=== PATIENT | male | born 1965 | race Caucasian/White ===

== ENCOUNTER 2016-12-24 21:28 | Inpatient (IN) | payer SELFPAY ==
--- NOTE | ~2016-12-24 | HP ---
History And Physical [place] [id number] [facility] [place]. [address] NAME: WING DUFFY : 65 STATUS : ADM IN [facility]#: [id number] AGE: 51 ADM/REG DATE : 12/25/16 MR#: [id number] REPORT SERV DATE: 12/25/16 DICTATED BY: TIAGO SIMS DATE: 12/25/16 REPORT STATUS : Draft TRANSCRIBED BY: MODL DATE: 12/25/16 DATE OF ADMISSION: 12/25/2016 CHIEF COMPLAINT: Severe abdominal pain and nausea. HISTORY OF PRESENT ILLNESS: This is a 51-year-old male, who presents to the emergency room at [facility] with the above-mentioned complaint. History is obtained from the patient, his who is at bedside, and reviewing data available on the [employer] system. According to Mr. Duffy, he started having severe abdominal pain in the lower abdomen around 7 p.m. last night. The pain was so severe that he almost doubled over. He says the pain came in waves and was very severe cramping in nature. He has not passed any blood or any stool since. He did have some nausea, but without any vomiting. When the pain continued and became very unbearable, he decided to come to the emergency room to be evaluated. In the emergency room, initial workup including a CT scan of his abdomen and pelvis showed mild thickening of the munoz of the colon, consistent with acute colitis. He also had leukocytosis in the CBC and acute kidney injury. Hospitalist Service is asked to admit him for further evaluation and management. At the time of my evaluation, he denied any chest pain or palpitations. He had no orthopnea. He continued to be in severe abdominal pain. He did not have any cough, hemoptysis, night sweats, or weight loss. He has not had any recent falls or loss of consciousness. He did have chills today prior to his arrival to the emergency room. He has not had any history of fevers. No history of vomiting, diarrhea. No hematemesis, hematochezia, or hematuria. No other history of recent travel or exposures other than those mentioned above. PAST MEDICAL HISTORY: Significant for history of hypothyroidism, history of congestive heart failure and cardiomyopathy, the details of which we do not have as he goes to [place] in [place]. He also has a history of gastroesophageal reflux disease. SOCIAL HISTORY: He has about 20 to [id number] history of smoking, continues to do so. Denies alcohol use or recreational drug use. 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 FAMILY HISTORY: Noncontributory. MEDICATIONS: At home were reviewed by me in the chart today and reordered by me. REVIEW OF SYSTEMS: As in history of present illness. All other systems were reviewed in detail and are quite unremarkable. PHYSICAL EXAMINATION: History And Physical [address] [address] NAME: WING DUFFY : 65 STATUS : ADM IN [facility]#: [id number] AGE: 51 ADM/REG DATE : 12/25/16 MR#: [id number] REPORT SERV DATE: 12/25/16 DICTATED BY: TIAGO SIMS DATE: 12/25/16 REPORT STATUS : Draft TRANSCRIBED BY: LALO DATE: 12/25/16 GENERAL: This is a pleasant 51-year old, not in any acute distress. He is alert, awake, oriented to time, place, and person. HEENT: Head is atraumatic, normocephalic. His pupils are equal, reacting to light and accommodating. External ocular muscles are intact. Membranes are moist and pink. Sclerae are nonicteric. NECK: Supple with no jugular venous distention, lymphadenopathy, or thyromegaly. LUNGS: Clear to auscultation with no wheezes, rubs, or crackles. HEART: Heart sounds were regular with no murmurs, rubs, or gallops. ABDOMEN: Soft, tender to palpation especially in the lower abdomen. There is no rebound or guarding. Bowel sounds are present. There was no obvious organomegaly. EXTREMITIES: Showed no cyanosis, clubbing, or edema. NEUROLOGIC: Grossly intact. No focal sensory or motor deficits. Higher functions appeared intact. Gait was not examined today. VITAL SIGNS: His temperature was 97.3, pulse 72, respirations 17 a minute, blood pressure was 111/74, oxygen saturations were 95% breathing 2 L of oxygen via nasal cannula. LABORATORY DATA: Reviewed on the [employer] system showed a sodium of 140, potassium 4.2, chloride 107, CO2 of 27, BUN was 25 with a creatinine of 1.42. We do not have any prior values here. Blood glucose was 125. His lipase was 121. Lactate was 0.9. [place] [address], normal hemoglobin, hematocrit, and platelet count. Urinalysis was grossly unremarkable. Films of the CT scan of his abdomen and pelvis were reviewed by me on the PACS today and interpreted by me. Official radiology comments were also noted. CT of the abdomen and pelvis showed mild thickening of the munoz of the colon consistent with acute colitis. Please see report for details. A 12-lead EKG done in the emergency room was reviewed and interpreted by me. There is normal sinus rhythm with a rate of [address]-T changes. IMPRESSION: 1. Severe abdominal pain. 2. Acute colitis. 3. Leukocytosis. 4. Acute kidney injury. 5. Hypothyroidism. 6. History of congestive heart failure, cardiomyopathy followed at [facility] in [place]. 7. Gastroesophageal reflux disease. PLAN: We will admit Mr. Duffy to the med/surg telemetry floor. We will start him on IV fluids for volume replacement, keep him n.p.o. for now for bowel rest. We will establish pain control with Dilaudid on an as-needed basis. We will also obtain cultures, start him on empiric IV antibiotics at this time and go ahead and consult Gastroenterology Service to see him in the morning. He says he has never seen a driver here. We will also get chemistry, electrolytes in the morning, and replace as needed. We will check his thyroid function, continue replacement therapy at this time. We will also place him on History And Physical [address] [address] NAME: WING DUFFY : 65 STATUS : ADM IN [facility]#: [id number] AGE: 51 ADM/REG DATE : 12/25/16 MR#: [id number] REPORT SERV DATE: 12/25/16 DICTATED BY: TIAGO SIMS DATE: 12/25/16 REPORT STATUS : Draft TRANSCRIBED BY: LALO DATE: 12/25/16 unfractionated heparin for DVT prophylaxis as his stool Hemoccult which was done here was negative. I have discussed the above plans with the patient, and his questions were answered. He and his ex- are in agreement with the above plan. Further recommendations will follow after Gastroenterology has had a chance to see him. Hospitalist Service will be following him during his stay here. /LALO Tiago Sims M.D. / [id number] CC: Cory Blair MD
--- NOTE | ~2016-12-24 | CN ---
Consultation Report [facility] [address] [place]. [address] NAME: WING DUFFY : 65 STATUS : ADM IN [facility]#: [id number] AGE: 51 ADM/REG DATE : 12/25/16 MR#: [id number] REPORT SERV DATE: 12/25/16 DICTATED BY: FABIANA MILES DATE: 12/25/16 REPORT STATUS : Draft TRANSCRIBED BY: MODL DATE: 12/25/16 CONSULTATION DATE OF CONSULTATION: 12/25/2016 The patient has no primary care provider. REASON FOR EVALUATION: Abdominal pain and diarrhea. HISTORY OF PRESENT ILLNESS: Mr. Duffy is a 51-year-old, male who has recently migrated to the [facility] from [facility]. He was in his usual state of health until yesterday when he developed nausea, an urge to vomit, crampy abdominal pain, and diarrhea. He was admitted as the crampy pain was severe and spastic in nature. His stool has been watery. He reports approximately 5 bowel movements through the night. The stool is brown. He has had no bloody diarrhea. The patient denies previous similar symptoms. There has been no ill contacts, travel, or recent antibiotics. He does not drink well water or city water. His nausea has improved, and he has had no vomiting. He has not established with any physicians here in the [facility]. PAST MEDICAL HISTORY: 1. 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 Evaluated at [facility] for possible transplantation. The patient reports his ejection fraction has improved over the last two years to approximately 24%. 2. Hypothyroidism. 3. Gastroesophageal reflux. 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 He has ongoing tobacco use, with a 30- pack years smoking history. FAMILY HISTORY: Noncontributory. MEDICATIONS: On admission include Aldactone, digoxin, Synthroid, and Coreg. ALLERGIES: NONE KNOWN. PHYSICAL EXAMINATION: GENERAL: Reveals a man who appears older than his stated age. VITAL SIGNS: Blood pressure 128/70, temperature 97.8, heart rate 89. SKIN: Numerous tattoos. HEENT: No icterus. Oropharynx is dry. NECK: Supple. No jugular venous distention. CHEST: Clear to auscultation. CARDIAC: Regular rate and rhythm without gallop or murmur. Consultation Report [place] [id number] [place]. [address] NAME: WING DUFFY : 65 STATUS : ADM IN PAT#: [id number] AGE: 51 ADM/REG DATE : 12/25/16 MR#: [id number] REPORT SERV DATE: 12/25/16 DICTATED BY: FABIANA MILES DATE: 12/25/16 REPORT STATUS : Draft TRANSCRIBED BY: MODL DATE: 12/25/16 ABDOMEN: Nondistended. Bowel sounds are present. There is mild tenderness throughout. EXTREMITIES: Warm without edema. LABORATORY DATA: Sodium 143, potassium 4.3, BUN 23, creatinine 1.23 decreased from 1.42, calcium 7.6. On admission, white blood cell count 69701, hemoglobin 15, platelets 292,000. CT imaging does not show thickening of the colonic wall and no small bowel distention. However, there are fluid-filled loops of small bowel. There are no pulmonary infiltrates or effusion, and the heart does not appear enlarged. The liver is unremarkable. IMPRESSION: Suspect acute enteritis. I suspect this is infectious in nature. The pain is crampy with periods of wellness between this doubt ischemic change but the patient certainly at risk. RECOMMENDATION: 1. IV Levsin as antispasmodic. 2. Mesenteric Doppler to rule out thrombus or vascular issue. 3. No endoscopic evaluation indicated at this time. 4. Follow up white blood cell count and lactate. Thank you for asking me to participate in his management. JOHN/LALO Fabiana Miles M.D. / [id number] CC: Cory Blair MD
--- NOTE | ~2016-12-24 | DS ---
Discharge Summary [place] [id number] [facility] [place]. [address] NAME: WING WILLS : 65 STATUS : DIS IN PAT#: [id number] AGE: 51 ADM/REG DATE : 12/25/16 MR#: [id number] REPORT SERV DATE: 12/26/16 DICTATED BY: CORY LAM DATE: 12/26/16 REPORT STATUS : Draft TRANSCRIBED BY: LALO DATE: 12/26/16 ADMISSION DATE: 12/25/2016 DISCHARGE DATE: 12/26/2016 CONSULTATION: Gastroenterology, Fabiana Miles M.D. PROCEDURE: 1. Mesenteric Doppler ultrasound. Impression: Normal study. No evidence is seen to suggest stenosis of the great mesenteric vessels. 2. CT abdomen and pelvis. Impression:. a. Early infiltrative changes in the lateral aspect of the left lung base. b. Question gastroenteritis. DISCHARGE DIAGNOSES: 1. Acute gastroenteritis. 2. Colitis. 3. History of dilated cardiomyopathy. 4. Gastroesophageal reflux disease. 5. Acute kidney injury. 6. Hypothyroidism. 7. Hypertension. DISCHARGE CONDITION: Stable. HISTORY OF PRESENT ILLNESS: For detailed HPI, please make reference to Dr. Tiago Torres's dictation on 12/25/2016. In brief, this is a 51-year-old gentleman with medical history of dilated cardiomyopathy who presented to the hospital with complaints of severe abdominal pain in the lower quadrants. There was associated nausea, vomiting, and diarrhea. In the ER, the patient was found to have a blood pressure of 111/74. [place] [address]. Lipase was normal. Lactate was 0.9. CT scan of the abdomen was done that was concerning for possible acute colitis as well as evidence of gastroenteritis. An assessment of acute colitis with gastroenteritis was made in the ER. The patient was admitted to the Hospitalist Service. HOSPITAL COURSE: Acute gastroenteritis with colitis. The patient was started on broad- spectrum antibiotic with IV levofloxacin and Flagyl. Stool studies were obtained. C diff was negative. Stool cultures were negative. GI was consulted given severe abdominal pain and recommended to have a mesenteric Doppler. Mesenteric Doppler was done. Report was noted as normal. No evidence of stenosis. The patient was made n.p.o., started on IV fluid resuscitation, and broad-spectrum antibiotics were continued. The patient's white cell count gradually trended down back to normal. The patient's nausea and vomiting with diarrhea resolved, and the patient's diet was advanced to a regular diet. The patient tolerated a regular diet. The patient was subsequently discharged to continue 7 days of treatment of antibiotics and follow up with primary care physician as an outpatient. Dilated cardiomyopathy. The patient presented with a history of dilated cardiomyopathy. Discharge Summary [address] [address] NAME: WING WILLS : 65 STATUS : DIS IN PAT#: [id number] AGE: 51 ADM/REG DATE : 12/25/16 MR#: [id number] REPORT SERV DATE: 12/26/16 DICTATED BY: CORY LAM DATE: 12/26/16 REPORT STATUS : Draft TRANSCRIBED BY: LALO DATE: 12/26/16 The patient's home doses of beta-nancy and MONROE inhibitors were continued. The patient was advised to continue to follow up with primary Cardiology. No evidence of acute decompensated heart failure throughout the course of this admission. Acute kidney injury. The patient's creatinine was elevated from baseline, etiology likely due to prerenal azotemia due to diarrhea. The patient's creatinine trended back down to normal with IV fluid resuscitation. At the time of discharge, the patient's creatinine had returned back to baseline of 1.05. The patient was advised to follow up with primary care physician. DISCHARGE ACTIVITY: As tolerated. DISCHARGE MEDICATIONS: 1. Coreg 6.25 mg p.o. b.i.d. 2. Digoxin 0.15 mg p.o. daily. 3. Levothyroxine 150 mcg p.o. daily. 4. Lisinopril 10 mg p.o. daily. 5. Protonix 40 mg p.o. daily. 6. Spironolactone 50 mg p.o. daily. 7. Levofloxacin 750 mg p.o. daily. 8. Flagyl 500 mg p.o. b.i.d. DISCHARGE DIET: As tolerated. A total of greater than 30 minutes was used to prepare this patient's discharge, reconcile medication, and advise the patient on discharge plans and followup. CARROLLO/SORAYAL Cory Lam MD / [id number] CC: Cory Lam MD
[2016-12-24 22:11] LABS: ASCORBIC ACID (UR NOT ORDER) NEG (NEG); BILIRUBIN, URINE NEGATIVE (NEG); ER URINALYSIS TAT 0 Hrs 15 Mins; KETONE, URINE NEGATIVE (NEG); LEUKOCYTE ESTERASE(NOT OR NEG (NEG); NITRITE (URINE) NEG (NEG); WBC (NOT ORDERED) (RFLEX) < 1 (0-5)
[2016-12-24 22:26] LABS: BASOPHILS 0.2 %; BASOPHILS ABSOLUTE 0.04 10/3/uL (0.0-0.16); EOSINOPHILS 0.1 %; EOSINOPHILS ABSOLUTE 0.02 10/3/uL (0.0-0.53); ER CBC TAT 0 Hrs 07 Mins; HEMATOCRIT 44.3 % (40.0-51.0); HEMOGLOBIN 15.5 g/dL (13.6-17.8); IMMATURE GRANULOCYTES 0.4 %; LYMPHOCYTES 8.2 %; LYMPHOCYTES ABSOLUTE 1.92 10/3/uL (0.67-4.30); MEAN CORPUSCULAR HEMOGLOB 30.5 pg (26.0-34.0); MEAN CORPUSCULAR VOLUME 87.2 fL (80-100); MEAN PLATELET VOLUME 9.1 fL (9.2-13.0); MONOCYTES 5.6 %; MONOCYTES ABSOLUTE 1.32 10/3/uL (0.21-1.20); NEUTROPHILS 85.5 %; NEUTROPHILS ABSOLUTE 20.03 10/3/uL (2.02-8.40); PLATELET COUNT 292 10/3/uL (150-400); RBC DISTRIBUTION WIDTH 13.2 % (12.0-16.0); RED CELL COUNT 5.08 10/6/uL (4.7-6.1); WHITE BLOOD CELLS 23.4 10/3/uL (4.5-10.5)
[2016-12-24 22:27] LABS: MANUAL DIFF NO %
[2016-12-24 22:40] LABS: ALBUMIN 3.5 G/DL (3.5-5.0); ALKALINE PHOSPHATASE 133 U/L (45-117); BUN (BLOOD UREA NITROGEN) 25 MG/DL (6-23); CALCIUM, SERUM 8.9 MG/DL (8.5-10.4); CHLORIDE, SERUM 107 MMOL/L (96-112); CO2 (CARBON DIOXIDE) 27 MMOL/L (24-34); CREATININE 1.42 MG/DL (0.70-1.30); GFR AFRICAN AMERICAN 66 ML/MIN (>=60); GFR NON AFRICAN AMERICAN 57 ML/MIN (>=60); GLOBULIN 3.4 G/DL (2.5-4.1); GLUCOSE, SERUM 125 MG/DL (60-99); POTASSIUM, SERUM 4.2 MMOL/L (3.5-5.3); SGOT(AST) 24 U/L (5-40); SGPT(ALT) 16 U/L (5-65); SODIUM, SERUM 140 MMOL/L (135-148); TOTAL BILIRUBIN 0.7 MG/DL (0-1.2); TOTAL PROTEIN 6.9 G/DL (6.0-8.5)
[2016-12-24 22:55] LABS: BAND NEUTROPHILS 2 %; ER DIFF TAT 0 Hrs 36 Mins; LYMPHOCYTES 10 %; LYMPHOCYTES ABSOLUTE (CALC) 2.34 10/3/uL (0.67-4.30); MONOCYTES 4 %; MONOCYTES ABSOLUTE (CALC) 0.94 10/3/uL (0.21-1.20); NEUTROPHILS ABSOLUTE (CALC) 20.12 10/3/uL (2.02-8.40); PLATELET ESTIMATE ADQ (ADEQUATE); RBC MORPHOLOGY NORM (NORMAL); SEGMENTED NEUTROPHIL (0) 84 %; TOTAL NUCLEATED CELLS 100
[2016-12-25] MEDS ORDERED: SYN.15 PO (00:12)
[2016-12-25] MEDS ORDERED: SPIRO50 PO (00:12)
[2016-12-25] MEDS ORDERED: LAN125 PO (00:12)
[2016-12-25] MEDS ORDERED: COREG6 PO (00:13)
[2016-12-25] MEDS ORDERED: *UNABLE1 (00:17)
[2016-12-25 06:46] LABS: A/G RATIO 0.9 (0.7-1.9); ALBUMIN 2.8 G/DL (3.5-5.0); BUN (BLOOD UREA NITROGEN) 23 MG/DL (6-23); CHLORIDE, SERUM 111 MMOL/L (96-112); CO2 (CARBON DIOXIDE) 24 MMOL/L (24-34); CREATININE 1.23 MG/DL (0.70-1.30); GFR AFRICAN AMERICAN 78 ML/MIN (>=60); GFR NON AFRICAN AMERICAN 68 ML/MIN (>=60); GLOBULIN 3.1 G/DL (2.5-4.1); GLUCOSE, SERUM 123 MG/DL (60-99); POTASSIUM, SERUM 4.3 MMOL/L (3.5-5.3); SGOT(AST) 20 U/L (5-40); SGPT(ALT) 14 U/L (5-65); SODIUM, SERUM 143 MMOL/L (135-148); TOTAL BILIRUBIN 0.6 MG/DL (0-1.2); TOTAL PROTEIN 5.9 G/DL (6.0-8.5)
[2016-12-25 06:47] LABS: ALKALINE PHOSPHATASE 106 U/L (45-117); CALCIUM, SERUM 7.6 MG/DL (8.5-10.4)
[2016-12-25 10:21] LABS: BASOPHILS 0.1 %; BASOPHILS ABSOLUTE 0.01 10/3/uL (0.0-0.16); EOSINOPHILS 0 %; HEMATOCRIT 44.2 % (40.0-51.0); HEMOGLOBIN 14.8 g/dL (13.6-17.8); IMMATURE GRANULOCYTES 0.3 %; IMMATURE GRANULOCYTES ABSOLUTE 0.04 10/3/uL (0.0-0.11); LYMPHOCYTES 6.4 %; LYMPHOCYTES ABSOLUTE 0.92 10/3/uL (0.67-4.30); MANUAL DIFF NO %; MEAN CORPUS HGB CONC 33.5 g/dL (32.0-36.0); MEAN CORPUSCULAR HEMOGLOB 30.1 pg (26.0-34.0); MEAN CORPUSCULAR VOLUME 89.8 fL (80-100); MEAN PLATELET VOLUME 9.1 fL (9.2-13.0); MONOCYTES 7.4 %; MONOCYTES ABSOLUTE 1.07 10/3/uL (0.21-1.20); NEUTROPHILS 85.8 %; NEUTROPHILS ABSOLUTE 12.38 10/3/uL (2.02-8.40); PLATELET COUNT 255 10/3/uL (150-400); RBC DISTRIBUTION WIDTH 13.4 % (12.0-16.0); RED CELL COUNT 4.92 10/6/uL (4.7-6.1); WHITE BLOOD CELLS 14.4 10/3/uL (4.5-10.5)
[2016-12-25] MEDS ORDERED: PROTONIX PO (12:38)
[2016-12-25] MEDS ORDERED: PRIN10 PO (12:38)
[2016-12-25 18:23] LABS: CALCIUM, SERUM 7.5 MG/DL (8.5-10.4); CHLORIDE, SERUM 107 MMOL/L (96-112); CO2 (CARBON DIOXIDE) 25 MMOL/L (24-34); GFR AFRICAN AMERICAN 81 ML/MIN (>=60); GFR NON AFRICAN AMERICAN 70 ML/MIN (>=60); GLUCOSE, SERUM 121 MG/DL (60-99); PHOSPHORUS, SERUM 1.5 MG/DL (2.5-4.5); POTASSIUM, SERUM 3.8 MMOL/L (3.5-5.3); SODIUM, SERUM 141 MMOL/L (135-148)
[2016-12-25 18:24] LABS: BUN (BLOOD UREA NITROGEN) 19 MG/DL (6-23)
[2016-12-26 10:00] LABS: BASOPHILS 0.3 %; BASOPHILS ABSOLUTE 0.03 10/3/uL (0.0-0.16); EOSINOPHILS 0.3 %; EOSINOPHILS ABSOLUTE 0.03 10/3/uL (0.0-0.53); HEMATOCRIT 43.2 % (40.0-51.0); HEMOGLOBIN 14.4 g/dL (13.6-17.8); IMMATURE GRANULOCYTES 0.3 %; IMMATURE GRANULOCYTES ABSOLUTE 0.03 10/3/uL (0.0-0.11); LYMPHOCYTES 15.7 %; LYMPHOCYTES ABSOLUTE 1.69 10/3/uL (0.67-4.30); MEAN CORPUS HGB CONC 33.3 g/dL (32.0-36.0); MEAN CORPUSCULAR HEMOGLOB 29.9 pg (26.0-34.0); MEAN CORPUSCULAR VOLUME 89.6 fL (80-100); MEAN PLATELET VOLUME 9.7 fL (9.2-13.0); MONOCYTES 9.3 %; NEUTROPHILS 74.1 %; PLATELET COUNT 216 10/3/uL (150-400); RBC DISTRIBUTION WIDTH 13.2 % (12.0-16.0); RED CELL COUNT 4.82 10/6/uL (4.7-6.1); WHITE BLOOD CELLS 10.8 10/3/uL (4.5-10.5)
[2016-12-26 10:03] LABS: MANUAL DIFF NO %
[2016-12-26 10:15] LABS: CALCIUM, SERUM 7.2 MG/DL (8.5-10.4); CHLORIDE, SERUM 107 MMOL/L (96-112); CO2 (CARBON DIOXIDE) 25 MMOL/L (24-34); CREATININE 1.05 MG/DL (0.70-1.30); GFR AFRICAN AMERICAN 95 ML/MIN (>=60); GFR NON AFRICAN AMERICAN 82 ML/MIN (>=60); POTASSIUM, SERUM 3.7 MMOL/L (3.5-5.3); SODIUM, SERUM 142 MMOL/L (135-148)
[2016-12-26 10:18] LABS: BUN (BLOOD UREA NITROGEN) 12 MG/DL (6-23); GLUCOSE, SERUM 62 MG/DL (60-99)
[2016-12-26] MEDS ORDERED: LEVAQUIN750 MG PO (12:48)
[2016-12-26] MEDS ORDERED: FLAG500TAB PO (12:49)
== END 2016-12-26 15:54 | disposition home or self-care (01) | DRG 683 ==
LOC: ER 21:28 → 6NO 12-25 00:13
PROVIDERS: Emergency Medicine; Hospitalist; Internal Medicine Gastroenterology; Internal Medicine Pulmonary Disease
DX: N17.9 Acute kidney failure, unspecified (principal); I42.0 Dilated cardiomyopathy; K52.9 Noninfective gastroenteritis and colitis, unspecified; E03.9 Hypothyroidism, unspecified; K21.9 Gastro-esophageal reflux disease without esophagitis; F17.210 Nicotine dependence, cigarettes, uncomplicated; I10 Essential (primary) hypertension
CPT/HCPCS: 74000; 74176; 80048; 80053; 81001; 82150; 83605; 83690; 83735; 84100; 84145; 84443; 85025; 87040; 87045; 87046; 87046-59; 87493; 87493-59; 87899; 87899-59; 93005; 93975; 96374; 96375; 96376; 99285; A9270-GY; J1170; J1956; J1980; J2405